=== PATIENT | female | born 1995 | race African-American/Black ===

== ENCOUNTER 2019-04-21 13:49 | Observation (INO) | payer MEDICAID ==
[~2019-04-21] VITALS: Ht 167.6 cm; Wt 115.0 kg
[~2019-04-21 13:49] MED LIST: PREN-88 PO
[2019-04-21 13:55] VITALS: BP 141/82
[2019-04-21 15:19] LABS: CLARITY URINE CLOUDY (CLEAR); COLOR URINE YELLOW (YELLOW); KETONES URINE TRACE (NEGATIVE); LEUKOCYTE ESTERASE URINE 2+ (NEGATIVE); NITRITE URINE NEGATIVE (NEGATIVE); OCCULT BLOOD URINE TRACE (NEGATIVE); PH URINE 6.5 (4.5-8.0); PROTEIN URINE NEGATIVE (NEGATIVE); SPECIFIC GRAVITY URINE 1.028 (1.005-1.030); UROBILINOGEN URINE 0.2 E.U./dL (0.2-1.0)
[2019-04-21] MEDS ORDERED: LACTATED RINGERS 1,000 ML IV ONE (16:45)
[2019-04-21] MEDS ORDERED: CEFAZOLIN 2,000 MG in DEXT 5% WATER 100 ML IV NR (17:00)
== END 2019-04-21 17:30 | disposition home or self-care (01) ==
LOC: ER 13:49 → 8 EST LDRP 14:06
PROVIDERS: ADMIT Specialist; ATTEND Specialist
DX: O26.899 Other specified pregnancy related conditions, unspecified trimester (principal); R10.10 Upper abdominal pain, unspecified; Z3A.00 Weeks of gestation of pregnancy not specified
CPT/HCPCS: 81003; 96365; 99281; G0378; J0690; J7060

== ENCOUNTER 2025-05-23 02:15 | Emergency (ER) | payer MEDICAID ==
[~2025-05-23] VITALS: Ht 160 cm; Wt 122.0 kg
[2025-05-23 02:17] VITALS: TEMP 98.4; O2SAT 98
[2025-05-23 04:10] VITALS: BP 138/82; PULSE 122; RESP 18
[2025-05-23] MEDS: IBUPROFEN 600MG TABLET PO ONE (04:10)
[2025-05-23] MEDS: BACITRACIN ZINC OINT UDPKT TOP ONE (04:10)
[2025-05-23] MEDS ORDERED: BO1 TP (05:04)
[2025-05-23] MEDS ORDERED: AMOX1TAB16 MT (05:04)
[2025-05-23] MEDS ORDERED: IBUP-1455 MT (05:04)
== END 2025-05-23 05:30 | disposition home or self-care (01) ==
LOC: ER 02:15
DX: S61.452A Open bite of left hand, initial encounter (principal); S61.451A Open bite of right hand, initial encounter; S62.604A Fracture of unspecified phalanx of right ring finger, initial encounter for closed fracture; Z79.899 Other long term (current) drug therapy; Y04.1XXA Assault by human bite, initial encounter; Y93.89 Activity, other specified; Y92.89 Other specified places as the place of occurrence of the external cause; Y99.8 Other external cause status
CPT/HCPCS: 29130; 73140; 99283